=== PATIENT | female | born 1980 | race Caucasian/White ===

== ENCOUNTER 2022-10-14 21:45 | Emergency (ER) | payer MEDICARE, MEDICAID ==
[2022-10-14] MEDS ORDERED: Acetaminophen 325 MG Tab PO STA (23:02)
== END 2022-10-14 23:24 | disposition home or self-care (01) ==
LOC: JP.ED 21:45
DX: L27.0 Generalized skin eruption due to drugs and medicaments taken internally (principal); T50.Z95A Adverse effect of other vaccines and biological substances, initial encounter; Z88.1 Allergy status to other antibiotic agents; Z88.8 Allergy status to other drugs, medicaments and biological substances; Z72.0 Tobacco use
CPT/HCPCS: 99283; A9270